=== PATIENT | female | born 1990 | race Caucasian/White ===

== ENCOUNTER 2017-02-27 23:29 | Emergency (ER) | payer OTHER ==
[2017-02-28 00:13] LABS: BASOPHIL 0.5 % (0-2); EOSINOPHIL 1.4 % (0-5); HCT 35.6 % (37.0-47.0); HGB 11.7 g/dl (12.5-16.0); LYMPHOCYTE 39.6 % (15-48); MCH 28.2 pg (25.0-31.0); MCHC 32.9 g/dL (32.0-36.0); MCV 85.8 fL (78.0-100.0); MONOCYTE 8.1 % (0-12); MPV 9.9 fL (6.0-9.5); NEUTROPHIL 50.4 % (41-80); PLT 276 K/uL (150-400); RBC 4.15 M/uL (4.20-5.40); RDW 12.5 % (11.5-14.0); WBC 9.4 K/uL (4.0-10.5)
[2017-02-28 00:20] LABS: BILIRUBIN NEGATIVE (NEGATIVE); BLOOD NEGATIVE Ery/uL (NEGATIVE); CLARITY CLEAR (CLEAR); COLOR YELLOW (YELLOW); GLUCOSE (U) NORMAL (NORMAL); KETONE (U) NEGATIVE (NEGATIVE); LEUKOCYTES NEGATIVE Leu/uL (NEGATIVE); NITRITE NEGATIVE (NEGATIVE); PROTEIN NEGATIVE (NEGATIVE); UROBILINOGEN 0.2 mg/dL (0.2-1.0)
[2017-02-28 00:26] LABS: CREATININE 0.6 mg/dL (0.5-1.0); POTASSIUM 3.6 mmol/L (3.5-5.1)
== END 2017-02-28 01:00 | disposition home or self-care (01) ==
LOC: FER 23:29
PROVIDERS: Emergency Medicine
DX: O99.89 Other specified diseases and conditions complicating pregnancy, childbirth and the puerperium (principal); R10.30 Lower abdominal pain, unspecified; M54.9 Dorsalgia, unspecified; Z88.2 Allergy status to sulfonamides; Z3A.01 Less than 8 weeks gestation of pregnancy
CPT/HCPCS: 36415; 80048; 81003; 84702; 84703; 85025; 99284